=== PATIENT | female | born 1980 | race Two or more races ===

== ENCOUNTER 2016-09-09 01:10 | Emergency (ER) | payer MEDICAID ==
[2016-09-09 01:17] VITALS: BP 125/90
[2016-09-09] MEDS ORDERED: ONDANSETRON HCL INJ/PF 4 MG/2 ML SDV IV ONE (01:25)
[2016-09-09] MEDS ORDERED: NORMAL SALINE 1000 ML 1,000 ML IV ONE (01:25)
== END 2016-09-09 01:45 | disposition left against medical advice (07) ==
LOC: ER 01:10
DX: Z53.21 Procedure and treatment not carried out due to patient leaving prior to being seen by health care provider (principal)

== ENCOUNTER 2016-09-14 10:20 | Emergency (ER) | payer MEDICAID ==
--- NOTE | 2016-09-14 10:41 | ER Document Report ---
ED Medical Screen (RME) - General TRAVEL OUTSIDE OF THE [place] IN LAST 30 DAYS: No <MARVA STOREY - Last Filed: 09/14/16 10:38> <NERI RAMÍREZ - Last Filed: 09/16/16 05:34> - General Stated Complaint: ABDOMINAL PAIN,VOMITING Notes: 25 yo female c/o abdominal pain, vomiting, back pain x 1 week. pt reports vomiting blood. LLQ pain. no fever. not tolerating PO abd soft, LLQ tenderness (MARVA STOREY) - Related Data Allergies/Adverse Reactions: Penicillins Allergy (Verified 09/14/16 10:39) Past Medical History - Past Medical History Cardiac Medical History: Reports: Hx Hypertension Pulmonary Medical History: Reports: Hx Asthma Renal/ Medical History: Reports: Hx Ectopic , Hx Kidney Stones. Denies: Hx Peritoneal Dialysis GI Medical History: Reports: Hx Crohn's Disease, Hx Endoscopy Psychiatric Medical History: Reports: Hx Anxiety, Hx Attention Deficit Hyperactivity Disorder, Hx Depression Past Surgical History: Reports: Hx Cholecystectomy, Hx Gynecologic Surgery - laparoscopy, Hx Herniorrhaphy, Hx Inguinal Hernia - left - Immunizations Immunizations up to date: Yes Hx Diphtheria, Pertussis, Tetanus Vaccination: Yes - 2013 <MARVA STOREY - Last Filed: 09/14/16 10:38> Course - Laboratory Result Diagrams: 09/14/16 10:55 09/14/16 10:55 <NERI RAMÍREZ - Last Filed: 09/16/16 05:34> - Vital Signs Vital signs: Temp Pulse Resp BP Pulse Ox 98.4 F 66 18 117/96 H 95 09/14/16 18:31 09/14/16 21:56 09/14/16 21:56 09/14/16 21:56 09/14/16 21:56 - Laboratory Laboratory results interpreted by me: 09/14/16 09/14/16 09/14/16 10:55 10:55 15:40 WBC 20.0 H RBC 5.35 H MCH 26.2 L RDW 14.3 H Abs Neuts (Manual) 15.4 H ESR 44 H Glucose 121 H Calcium 11.0 H Alkaline Phosphatase 145 H Total Protein 8.7 H Doctor's Discharge <MARVA STOREY - Last Filed: 09/14/16 10:38> <NERI RAMÍREZ - Last Filed: 09/16/16 05:34> - Discharge Clinical Impression: Abdominal pain, Hematemesis with nausea, Leukocytosis Condition: Good Disposition: AGAINST MEDICAL ADVICE
[2016-09-14 11:58] LABS: HEMATOCRIT 43.4 % (36.0-47.0); HGB HCT DIFFERENCE -1.4; MEAN CORPUSCULAR HEMOGLOBIN 26.2 pg (27.0-33.4); MEAN CORPUSCULAR HGB CONC 32.3 g/dL (32.0-36.0); MEAN CORPUSCULAR VOLUME 81 fl (80-97); RED BLOOD COUNT 5.35 10^6/uL (3.72-5.28); RED CELL DISTRIBUTION WIDTH 14.3 % (11.5-14.0)
[2016-09-14 12:01] LABS: APPEARANCE,URINE CLEAR; BILIRUBIN,URINE NEGATIVE (NEGATIVE); GLUCOSE, URINE NEGATIVE (NEGATIVE); KETONES,URINE NEGATIVE (NEGATIVE); LEUKOCYTE ESTERASE,URINE NEGATIVE (NEGATIVE); NITRITE,URINE NEGATIVE (NEGATIVE); PROTEIN,URINE NEGATIVE (NEGATIVE); URINE SPECIFIC GRAVITY 1.012; UROBILINOGEN,URINE NEGATIVE mg/dL (<2.0)
[2016-09-14 12:20] LABS: ALANINE AMINOTRANSFERASE 35 U/L (9-52); ALKALINE PHOSPHATASE 145 U/L (38-126); ANION GAP 17 (5-19); ASPARTATE AMINO TRANSFERASE 28 U/L (14-36); BILIRUBIN,DIRECT 0.3 mg/dL (0.0-0.4); BILIRUBIN,TOTAL 0.8 mg/dL (0.2-1.3); BLOOD UREA NITROGEN 8 mg/dL (7-20); CARBON DIOXIDE 25 mmol/L (22-30); CHLORIDE 100 mmol/L (98-107); GLUCOSE 121 mg/dL (75-110); LIPASE 29.1 U/L (23-300); POTASSIUM 4.7 mmol/L (3.6-5.0); SODIUM 141.7 mmol/L (137-145); TOTAL PROTEIN 8.7 g/dL (6.3-8.2)
[2016-09-14 12:22] LABS: BASOPHILS % (MANUAL) 0 % (0-2); EOSINOPHILS % (MANUAL) 2 % (0-6); LYMPHOCYTES % (MANUAL) 15 % (13-45); RBC MORPHOLOGY COMMENT NORMO-CYTIC/CHROMIC; TOTAL CELLS COUNTED 100; TOXIC GRANULATION SLIGHT
--- NOTE | 2016-09-14 14:31 | ER Document Report ---
ED GI/ - General Chief Complaint: Abdominal Pain Stated Complaint: ABDOMINAL PAIN,VOMITING Mode of Arrival: Ambulatory Information source: Patient TRAVEL OUTSIDE OF THE [place] IN LAST 30 DAYS: No - HPI Patient complains to provider of: Abdominal pain, Vomiting Onset: Other - 1 MONTH, WORSE IN PAST WEEK Timing/Duration: Gradual Quality of pain: Achy, Dull Severity at maximum: Moderate Severity in ED: Moderate Location: Epigastric, Other - ANGELICA-UMBILICAL Vaginal bleeding (Compared to normal period): None Associated symptoms: Diarrhea, Loss of appetite, Nausea, Vomiting Exacerbated by: Food Relieved by: Denies Similar symptoms previously: Yes Recently seen / treated by doctor: Yes - PCP, TODAY - Related Data Allergies/Adverse Reactions: Penicillins Allergy (Verified 09/14/16 10:39) Past Medical History - General Information source: Patient - Social History Smoking Status: Unknown if Ever Smoked Chew tobacco use (# tins/day): No Frequency of alcohol use: None Drug Abuse: None Family History: Arthritis, CAD, CVA, DM, Hyperlipidemia, Hypertension, Malignancy Patient has suicidal ideation: No Patient has homicidal ideation: No - Past Medical History Cardiac Medical History: Reports: Hx Hypertension Pulmonary Medical History: Reports: Hx Asthma Renal/ Medical History: Reports: Hx Ectopic , Hx Kidney Stones. Denies: Hx Peritoneal Dialysis GI Medical History: Reports: Hx Crohn's Disease, Hx Endoscopy Musculoskeltal Medical History: Reports None Psychiatric Medical History: Reports: Hx Anxiety, Hx Attention Deficit Hyperactivity Disorder, Hx Depression Past Surgical History: Reports: Hx Cholecystectomy, Hx Gynecologic Surgery - laparoscopy, Hx Herniorrhaphy, Hx Inguinal Hernia - left - Immunizations Immunizations up to date: Yes Hx Diphtheria, Pertussis, Tetanus Vaccination: Yes - 2013 Review of Systems - Review of Systems Constitutional: No symptoms reported EENT: No symptoms reported Cardiovascular: No symptoms reported Respiratory: No symptoms reported Gastrointestinal: See HPI Genitourinary: No symptoms reported Female Genitourinary: No symptoms reported Musculoskeletal: No symptoms reported Skin: No symptoms reported Neurological/Psychological: No symptoms reported Physical Exam - Vital signs Vitals: Temp Pulse Resp BP Pulse Ox 98.5 F 101 H 16 147/90 H 99 09/14/16 10:24 09/14/16 10:24 09/14/16 10:24 09/14/16 10:24 09/14/16 10:24 Interpretation: Hypertensive, Tachycardic. No: Tachypneic, Febrile - General General appearance: Appears well, Alert In distress: None - HEENT Head: Normocephalic Eyes: Normal Conjunctiva: Normal Ears: Normal Nasal: Normal Mouth/Lips: Normal Mucous membranes: Normal Pharynx: Normal Neck: Normal - Respiratory Respiratory status: No respiratory distress Breath sounds: Normal - Cardiovascular Rhythm: Regular Heart sounds: Normal auscultation Murmur: No - Abdominal Inspection: Obese Bowel sounds: Hypoactive Tenderness: Tender - MILD, UMBILICAL & EPIGASTRIC - Back Back: Normal - Extremities General upper extremity: Normal inspection General lower extremity: Normal inspection - Neurological Neuro grossly intact: Yes Cognition: Normal Orientation: AAOx4 - Psychological Associated symptoms: Normal affect, Normal mood - Skin Skin Temperature: Warm Skin Moisture: Dry Skin Color: Normal Skin Turgor: Elastic Course - Vital Signs Vital signs: Temp Pulse Resp BP Pulse Ox 98.4 F 93 16 150/116 H 98 09/14/16 18:31 09/14/16 18:31 09/14/16 10:24 09/14/16 18:31 09/14/16 18:31 - Laboratory Result Diagrams: 09/14/16 10:55 09/14/16 10:55 Laboratory results interpreted by me: 09/14/16 09/14/16 09/14/16 10:55 10:55 15:40 WBC 20.0 H RBC 5.35 H MCH 26.2 L RDW 14.3 H Abs Neuts (Manual) 15.4 H ESR 44 H Glucose 121 H Calcium 11.0 H Alkaline Phosphatase 145 H Total Protein 8.7 H - EKG Interpretation by Me EKG shows normal: Sinus rhythm, Intervals, QRS Complexes, ST-T Waves. abnormal : Lyons Rate: Normal Rhythm: NSR Lyons/QRS: Left axis deviation - Consults DR. BENSON Time consulted: 20:00 Consulted provider: will come to ER Discharge - Discharge Clinical Impression: Hematemesis with nausea Abdominal pain Qualifiers: Abdominal location: epigastric Qualified Code(s): R10.13 - Epigastric pain Leukocytosis Qualifiers: Leukocytosis type: unspecified Qualified Code(s): D72.829 - Elevated white blood cell count, unspecified Condition: Good Disposition: ADMITTED OBSERVATION Admitting Provider: Hospitalist Unit Admitted: Telemetry
--- NOTE | 2016-09-14 15:08 | EKG REPORT ---
SEVERITY:- OTHERWISE NORMAL ECG - SINUS RHYTHM LEFT AXIS DEVIATION : Confirmed by: Stanley Murray 14-Sep-2016 15:08:13
[2016-09-14] MEDS ORDERED: HYDROMORPHONE HCL INJ/PF 2 MG/ML AMPULE IV ONE ×2 (15:25→16:40)
[2016-09-14] MEDS ORDERED: ONDANSETRON HCL INJ/PF 4 MG/2 ML SDV IV ONE ×2 (15:25→16:40)
[2016-09-14] MEDS ORDERED: NORMAL SALINE 1000 ML 1,000 ML IV ONE (15:25)
[2016-09-14] MEDS ORDERED: PROMETHAZINE HCL 25 MG TABLET PO ONE (20:30)
[2016-09-14] MEDS ORDERED: MORPHINE SULFATE 10 MG/ML INJ IV ONE (20:36)
[2016-09-14] MEDS ORDERED: METRONIDAZOLE 500 MG TABLET PO ONE (21:00)
[2016-09-14 21:57] VITALS: BP 117/96
[2016-09-14] MEDS ORDERED: CIPROFLOXACIN 400 MG/D5W RTU 200 ML IV SCH (22:00)
--- NOTE | 2016-09-15 02:57 | H&P/Discharge Summary ---
Discharge Summary Admission Date/PCP: 09/14/16 20:12 Discharge Date: 09/14/16 Resuscitation Status: Full Code - Discharge Diagnosis (1) Leukocytosis Is this a current diagnosis for this admission?: YesSummary: Associated with generalized abdominal pain status post cholecystectomy, normal lipase, CT is unremarkable unclear cause will initiate stool studies blood and urinalysis symptomatic management and empiric antibiotics to cover GI kely with Levaquin and Flagyl (2) Abdominal pain Is this a current diagnosis for this admission?: YesSummary: Likely related to #1 unclear etiology symptomatic management empiric antibiotics with biophysical and biochemical follow-up (3) Anxiety disorder Is this a current diagnosis for this admission?: YesSummary: Patient's affect is Challenging and complicating her presentation will attempt to obtain her medical record, obtain medication reconciliation consider benzodiazepine when necessary. Patient stating she has been diagnosed with Crohn's disease at our facility without documentation and is concerned that she has [place] spotted fever today without symptoms or signs to suggest. (4) Morbid obesity Is this a current diagnosis for this admission?: YesSummary: Morbid obesity will evaluate for metabolic cause with evaluation of thyroid function and dietitian consultation (5) Hematemesis with nausea Is this a current diagnosis for this admission?: YesSummary: No recurrence continue symptomatic management when necessary Home Medications: Unobtainable [Unobtainable] 09/14/16 Allergies/Adverse Reactions: Penicillins Allergy (Verified 09/14/16 10:39) History of Present Illness Admission Date/PCP: 09/14/16 20:12 Patient complains of: Abdominal pain and nausea History of Present Illness: MENDEL DAO is a 35 year old female with a past medical history of morbid obesity, ADHD and anxiety. patient gives several different versions of history prompting her evaluation today. But in general stating she's had at least one week of abdominal pain that is diffuse and sometimes radiates to the left she's had some nausea vomiting bilious material denying ill contacts, suspect meals, constipation fever or diarrhea. Patient believes she is previously diagnosed with Crohn's disease at her facility without documentation and further states she believes she has [place] spotted fever today. In the emergency room she receives symptomatically management of his found to have leukocytosis but an otherwise unremarkable workup she's referred to the hospitalist for observation. A urine tox screen was ordered by the ER provider that is not provided, Unfortunately 2 hours following her examination and orders she elects to leave AGAINST MEDICAL ADVICE secondary to lack of childcare. Past Medical History Cardiac Medical History: Reports: Hypertension Pulmonary Medical History: Reports: Asthma GI Medical History: Reports: Crohn's Disease Musculoskeltal Medical History: Reports: None Psychiatric Medical History: Reports: Attention Deficit Hyperactivity Disorder, Depression, General Anxiety Disorder Past Surgical History Past Surgical History: Reports: Cholecystectomy, Herniorrhaphy Social History Lives with: Family Smoking Status: Unknown if Ever Smoked Drugs: None - Advance Directive Resuscitation Status: Full Code Family History Family History: Arthritis, CAD, CVA, DM, Hyperlipidemia, Hypertension, Malignancy Parental Family History Reviewed: Yes Children Family History Reviewed: Yes Sibling(s) Family History Reviewed.: Yes Review of Systems ROS unobtainable: Due to mental status - Given her decompensated anxiety and affirmative answers to all questions I feel it an unreliable history Physical Exam Vital Signs: Temp Pulse Resp BP Pulse Ox 98.4 F 66 18 117/96 H 95 09/14/16 18:31 09/14/16 21:56 09/14/16 21:56 09/14/16 21:56 09/14/16 21:56 General appearance: PRESENT: no acute distress, cooperative, mild distress, well -developed, well-nourished Head exam: PRESENT: atraumatic, normocephalic Eye exam: PRESENT: conjunctiva pink, EOMI, PERRLA. ABSENT: scleral icterus Ear exam: PRESENT: normal external ear exam Mouth exam: PRESENT: moist, tongue midline Neck exam: ABSENT: carotid bruit, JVD, lymphadenopathy, thyromegaly Respiratory exam: PRESENT: clear to auscultation carlos enrique. ABSENT: rales, rhonchi, wheezes Cardiovascular exam: PRESENT: RRR. ABSENT: diastolic murmur, rubs, systolic murmur Pulses: PRESENT: normal dorsalis pedis pul Vascular exam: PRESENT: normal capillary refill GI/Abdominal exam: PRESENT: normal bowel sounds, soft, tenderness. ABSENT: ascites, diminished bowel sounds, distended, guarding, hernia, mass, organolmegaly, rebound Rectal exam: PRESENT: deferred Extremities exam: PRESENT: full ROM. ABSENT: calf tenderness, clubbing, pedal edema Neurological exam: PRESENT: alert, awake, oriented to person, oriented to place , oriented to time, oriented to situation, CN II-XII grossly intact. ABSENT: motor sensory deficit Psychiatric exam: PRESENT: appropriate affect, normal mood. ABSENT: homicidal ideation, suicidal ideation Skin exam: PRESENT: dry, intact, warm. ABSENT: abrasion, cyanosis, petechiae, rash, urticaria, vesicles Results Impressions: Acute Abdomen Series 09/14/16 10:42 IMPRESSION: NO RADIOGRAPHIC EVIDENCE FOR ACUTE ABDOMINAL DISEASE. Abdomen/Pelvis CT 09/14/16 15:03 IMPRESSION: NO SIGNIFICANT OR ACUTE FINDING IN THE ABDOMEN OR PELVIS ON CT SCAN WITH IV CONTRAST. Assessment & Plan - Time Time Spent: 30 to 50 Minutes - Plan Summary Plan Summary: MENDEL DAO is a 35 year old female with a past medical history of morbid obesity, ADHD and anxiety. patient gives several different versions of history prompting her evaluation today. But in general stating she's had at least one week of abdominal pain that is diffuse and sometimes radiates to the left she's had some nausea vomiting bilious material denying ill contacts, suspect meals, constipation fever or diarrhea. Patient believes she is previously diagnosed with Crohn's disease at her facility without documentation and further states she believes she has [place] spotted fever today. In the emergency room she receives symptomatically management of his found to have leukocytosis but an otherwise unremarkable workup she's referred to the hospitalist for observation. A urine tox screen was ordered by the ER provider that is not provided, Unfortunately 2 hours following her examination and orders she elects to leave AGAINST MEDICAL ADVICE secondary to lack of childcare.
[2016-09-15] MEDS ORDERED: METRONIDAZOLE 500 MG TABLET PO SCH (06:00)
== END 2016-09-14 21:53 | disposition left against medical advice (07) ==
LOC: ER 10:20 → EH 20:12 → UNDOADMOB 20:12 → UNDODISOB 21:57
DX: K92.0 Hematemesis (principal); R11.0 Nausea; R10.13 Epigastric pain; D72.829 Elevated white blood cell count, unspecified
CPT/HCPCS: 93005; 96376; 99285; 96361; 96374; 96375; 36415; 83690; 85025; 85652; 80053; 81001; 74022; 74177; 93010; J2270; J1170; J3490 ×2; J2405; J7030

== ENCOUNTER 2016-12-31 23:50 | Emergency (ER) | payer OTHER, MEDICAID ==
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
[2017-01-01 02:13] VITALS: BP 145/87
== END 2017-01-01 02:15 | disposition home or self-care (01) ==
LOC: ER 23:50
DX: S16.1XXA Strain of muscle, fascia and tendon at neck level, initial encounter (principal); S40.011A Contusion of right shoulder, initial encounter; S70.01XA Contusion of right hip, initial encounter; M25.511 Pain in right shoulder; M25.551 Pain in right hip; M54.2 Cervicalgia; V49.50XA Passenger injured in collision with unspecified motor vehicles in traffic accident, initial encounter; I10 Essential (primary) hypertension; J45.909 Unspecified asthma, uncomplicated; Z88.0 Allergy status to penicillin
CPT/HCPCS: 99285; 36415; 84703; 71010; 73502; 73030; 72125; 72131; L0172

== ENCOUNTER 2017-10-29 10:27 | Emergency (ER) | payer MEDICAID ==
[2017-10-29 10:35] VITALS: BP 133/84
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
--- NOTE | 2017-10-29 11:42 | ER Document Report ---
ED Extremity Problem, Lower - General Chief Complaint: Knee Pain Stated Complaint: RIGHT KNEE PAIN Time Seen by Provider: 10/29/17 10:43 Mode of Arrival: Wheelchair Information source: Patient Notes: 37-year-old female presents to ED for complaint of right knee and ankle pain. She states he fell a week ago Monday when she was walking her dog any lunch that a CAT scan can her knocking her down causing her to fall onto her right knee. She states she has been trying to treated at home but it is continuing to hurt. She is alert and oriented respirations regular even unlabored speaking in full sentences. No deformities noted at this time no acute injuries noted at this time. TRAVEL OUTSIDE OF THE [place] IN LAST 30 DAYS: No - HPI Patient complains to provider of: Injury, Pain Location: Ankle, Knee Occurred: Other - 9 days ago Where: Outdoors Onset/Duration: Persistent Quality of pain: Achy, Sharp Severity: Severe Pain Level: 5 Context: Fell Recent injury: Possibly Associated symptoms: Painful ambulation Exacerbated by: Hanging down, Movement, Walking Relieved by: Elevation, Ice, Rest - Related Data Allergies/Adverse Reactions: Penicillins Allergy (Verified 09/14/16 10:39) Past Medical History - General Information source: Patient - Social History Smoking Status: Former Smoker Cigarette use (# per day): No Chew tobacco use (# tins/day): No Smoking Education Provided: No Frequency of alcohol use: None Drug Abuse: None Lives with: Family Family History: Arthritis, CAD, CVA, DM, Hyperlipidemia, Hypertension, Malignancy Patient has suicidal ideation: No Patient has homicidal ideation: No - Past Medical History Cardiac Medical History: Reports: Hx Hypertension, Hx Heart Murmur Pulmonary Medical History: Reports: Hx Asthma EENT Medical History: Reports: None Neurological Medical History: Reports: None Endocrine Medical History: Reports: None Renal/ Medical History: Reports: Hx Ectopic , Hx Kidney Stones Malignancy Medical History: Reports: None GI Medical History: Reports: Hx Crohn's Disease, Hx Endoscopy Musculoskeltal Medical History: Reports Hx Arthritis Skin Medical History: Reports None Psychiatric Medical History: Reports: Hx Anxiety, Hx Attention Deficit Hyperactivity Disorder, Hx Depression Traumatic Medical History: Reports: None Infectious Medical History: Reports: None Past Surgical History: Reports: Hx Cholecystectomy, Hx Gynecologic Surgery - laparoscopy, Hx Inguinal Hernia - left - Immunizations Immunizations up to date: Yes Hx Diphtheria, Pertussis, Tetanus Vaccination: Yes - 2013 Review of Systems - Review of Systems Constitutional: No symptoms reported EENT: No symptoms reported Cardiovascular: No symptoms reported Respiratory: No symptoms reported Gastrointestinal: No symptoms reported Genitourinary: No symptoms reported Female Genitourinary: No symptoms reported Musculoskeletal: Joint pain, Ankle swelling - Right knee and ankle Skin: No symptoms reported Hematologic/Lymphatic: No symptoms reported Neurological/Psychological: No symptoms reported Physical Exam - Vital signs Vitals: Temp Pulse Resp BP Pulse Ox 98.5 F 121 H 18 133/84 H 96 10/29/17 10:33 10/29/17 10:33 10/29/17 10:33 10/29/17 10:33 10/29/17 10:33 Interpretation: Normal - General General appearance: Appears well, Alert - HEENT Head: Normocephalic, Atraumatic Eyes: Normal Pupils: PERRL - Respiratory Respiratory status: No respiratory distress Chest status: Nontender Breath sounds: Normal Chest palpation: Normal - Cardiovascular Rhythm: Regular Heart sounds: Normal auscultation Murmur: No - Abdominal Inspection: Normal Distension: No distension Bowel sounds: Normal Tenderness: Nontender Organomegaly: No organomegaly - Back Back: Normal, Nontender - Extremities General upper extremity: Normal inspection, Nontender, Normal color, Normal ROM , Normal temperature General lower extremity: Normal color, Normal ROM, Normal temperature Knee: Tender, Pain with ROM, Patellar tendon intact, Popliteal fossa tender. No : Abrasion, Deformity, Dislocation, Drawer's test instability, Ecchymosis, Instability, Joint effusion, Laceration, Laxity with valgus stress, Laxity with varus stress Ankle: Tender, Edema. No: Abrasion, Deformity, Ecchymosis, Positive Jane's test, Unable to bear weight Foot: Tender, No evidence of FB. No: Abrasion, Deformity, Ecchymosis, Instability, Laceration, Metatarsal compress. pain, Nail injury, Navicular tenderness, Puncture wound - Neurological Neuro grossly intact: Yes Cognition: Normal Orientation: AAOx4 Yanci Coma Scale Eye Opening: Spontaneous [place] Coma Scale Verbal: Oriented [place] Coma Scale Motor: Obeys Commands [place] Coma Scale Total: 15 Speech: Normal Motor strength normal: LUE, RUE, LLE, RLE Sensory: Normal - Psychological Associated symptoms: Normal affect, Normal mood - Skin Skin Temperature: Warm Skin Moisture: Dry Skin Color: Normal Course - Re-evaluation Re-evalutation: 10/29/17 13:13 X-rays discussed with patient and family. Patient was treated with Anjel wrap and crutches. Patient was instructed on use elevation and ice ibuprofen and Tylenol. Patient states she is already had Tylenol and Motrin this morning. Patient instructed to follow-up with her primary doctor and orthopedics. - Vital Signs Vital signs: Temp Pulse Resp BP Pulse Ox 98.5 F 92 18 133/84 H 96 10/29/17 10:33 10/29/17 11:11 10/29/17 10:33 10/29/17 10:33 10/29/17 10:33 - Diagnostic Test Radiology reviewed: Image reviewed, Reports reviewed Procedures - Immobilization Right Knee Time completed: 11:45 Immobilizer type: Anjel wrap, Crutches Performed by: PCT Post-Proc Neuro Vasc Exam: Normal Alignment checked and good: Yes Right Ankle Time completed: 11:43 Immobilizer type: Anjel wrap Performed by: PCT Post-Proc Neuro Vasc Exam: Normal Alignment checked and good: Yes Discharge - Discharge Clinical Impression: Contusion of right knee, initial encounter, Contusion of right ankle, initial encounter, Right heel spur Condition: Stable Disposition: HOME, SELF-CARE Instructions: Exercises for the Foot Muscles ([facility]), Family Physicians / Practices, Plantar Fasciitis or Heel Spur ([facility]) Additional Instructions: CONTUSION: Your injury has resulted in a contusion -- a crushing of the deep tissues. No injury to important structures was detected during the physician's exam. Contusions vary in the amount of pain they cause, and in the length of time required for healing. Typically, the area will become bruised, and will remain painful to touch for two or three weeks. However, most patients are back to working and playing within a few days. After the initial period of rest and cold-packs, your symptoms (together with the doctor's recommendations) will determine how rapidly you can get back to full activity. Usually this means "do what feels okay, but don't do things that hurt." If re-examination was recommended, it's important to follow up as instructed. Call the doctor or return any time if pain increases, if swelling becomes severe, if you develop numbness or weakness in an injured extremity, or if any other alarming symptoms occur. USE OF TYLENOL (ACETAMINOPHEN): Acetaminophen may be taken for pain relief or fever control. It's much safer than aspirin, offering a wider range of "safe" dosages. It is safe during . Some brand names are Tylenol, Panadol, Datril, Anacin 3, Tempra, and Liquiprin. Acetaminophen can be repeated every four hours. The following are maximum recommended dosages: WEIGHT Dose Drops Elixir Chewable( 80mg) (LBS.) drprs=droppers tsp=teaspoon 6 40 mg 0.4 ml (1/2) 6-11 80 mg 0.8 ml (full) tsp 1 tab 12-16 120 mg 1 1/2 drprs 3/4 tsp 1 1/2 tabs 17-23 160 mg 2 drprs 1 tsp 2 tabs 24-30 240 mg 3 drprs 1 1/2 tsp 3 tabs 30-35 320 mg 2 tsp 4 tabs 36-41 360 mg 2 1/4 tsp 4 1/2 tabs 42-47 400 mg 2 1/2 tsp 5 tabs 48-53 480 mg 3 tsp 6 tabs 54-59 520 mg 3 1/4 tsp 6 1/2 tabs 60-64 560 mg 3 1/2 tsp 7 tabs 65-70 600 mg 3 3/4 tsp 7 1/2 tabs 71-76 640 mg 4 tsp 8 tabs 77-82 720 mg 4 1/2 tsp 9 tabs 83-88 800 mg 5 tsp 10 tabs >89 pounds or adults 650 mg to 900 mg Acetaminophen can be repeated every four hours. Maximum dose not to exceed 4000 mg a day. These maximum recommended dosages are slightly higher than the dosages written on the product container, but these dosages are very safe and below the toxic dosage for acetaminophen. ANJEL WRAP: A compression dressing (anjel wrap) has been placed. This helps hold the area still. It limits swelling and internal bleeding. The wrap should be comfortably snug -- not tight. You should feel a sense of pressure, but not severe pain under the wrap. Unless the physician tells you otherwise, you can adjust the wrap for comfort. If the wrap causes symptoms suggesting it's too tight -- uncomfortable pressure, swelling or discoloration beyond the wrap, numbness, or severe pain - - you must loosen the wrap. If these symptoms don't resolve promptly, return for re-evaluation. USE OF CRUTCHES: The doctor has recommended that you not bear weight at this time. You will need to use crutches. Adjust the crutches so the tops come to about two inches under the armpit while you are standing upright. Use your hands -- not your armpits -- to support your weight. To get into a chair, support yourself with one crutch on the injured side. Hold the chair with the other hand, then lower yourself while putting all your weight on the good leg. Going up stairs is `good leg up, step up, then bring up crutches and bad leg.' Down stairs is `bad leg and crutches down, then bring good leg down.' If you develop numbness or swelling in an arm or hand, you are using the crutches incorrectly. Return if you are having any problems with the crutches. ICE & ELEVATION: Apply ice packs frequently against the painful area. Many different schedules are recommended, such as "20 minutes on, 20 minutes off" or "one hour ice, two hours rest." If you need to work, you may need to go longer between ice treatments. You should plan to have the area ice packed AT LEAST one- fourth of the time. The ice should be applied over the wrap, tape, or splint, or over a layer of cloth -- not directly against the skin. Some ice bags have a built-in cloth and can be put directly on the skin. Your injured part should be elevated as much as possible over the next 48 hours. Try to keep the injury above the level of the heart. Avoid use of the injured area. Elevation and rest will decrease the swelling. USE OF ANJN-XJI-MRLETAZ IBUPROFEN: Ibuprofen (Advil, Nuprin, Medipren, Motrin IB) is a medication for fever and pain control. In addition, it has anti- inflammatory effects which may be beneficial, especially in the treatment of injuries. It's best to take ibuprofen with food. Persons with ulcer disease or allergy to aspirin should notify their physician of this before taking ibuprofen. Ibuprofen can be given every four to six hours, for a total of four doses daily. Age Pain or fever dose Antiinflammatory dose 6-8 yr 200 mg (1 tab) 200 mg (1 tab) 9-11 yr 200 mg (1 tab) 200-400 mg (1-2 tab) 11-14 yr 200-400 mg (1-2 tab) 400 mg (2 tab) 15-adult 400 mg (2 tab) 600 mg (3 tab) FOLLOW-UP CARE: If you have been referred to a physician for follow-up care, call the physician s office for an appointment as you were instructed or within the next two days. If you experience worsening or a significant change in your symptoms, notify the physician immediately or return to the Emergency Department at any time for re-evaluation. Forms: Elevated Blood Pressure Referrals: HEATHER HESS MD [ACTIVE STAFF] - Follow up as needed
== END 2017-10-29 11:57 | disposition home or self-care (01) ==
LOC: ER 10:27
DX: S80.01XA Contusion of right knee, initial encounter (principal); S90.01XA Contusion of right ankle, initial encounter; M77.31 Calcaneal spur, right foot; W18.30XA Fall on same level, unspecified, initial encounter; Y93.K1 Activity, walking an animal; Z88.0 Allergy status to penicillin
CPT/HCPCS: 99284